=== PATIENT | female | born 1965 | race Caucasian/White ===

== ENCOUNTER 2020-09-14 19:25 | Emergency (ER) | payer BC, OTHER ==
[2020-09-14 19:34] VITALS: BP 144/94; PULSE 68; BMI 21.4
== END 2020-09-14 22:10 | disposition home or self-care (01) ==
LOC: FER 19:25
DX: I73.9 Peripheral vascular disease, unspecified (principal)
CPT/HCPCS: 73610-TC-LT-FY; 73630-TC-LT; 93926-TC; 93971-TC; 99284-25